=== PATIENT | female | born 1990 | race Two or more races ===

== ENCOUNTER → 2021-05-03 | Outpatient (CLI) | payer OTHER ==
[~2021-05-03] MED LIST: ISOVUE-370 76% 100ML VIAL As Ordered ONE
== END ==
LOC: M RADPRO 11:38
PROVIDERS: ATTEND Obstetrics & Gynecology
DX: N97.9 Female infertility, unspecified (principal)
CPT/HCPCS: 58340; 74740; Q9967

== ENCOUNTER 2022-03-08 07:28 | Inpatient (IN) | payer OTHER ==
[~2022-03-08] VITALS: Ht 162.6 cm; Wt 110.0 kg
[2022-03-08] VITALS (30 sets, daily range): BP systolic 95–140; BP diastolic 51–92
[2022-03-08] MEDS ORDERED: ZOLO25TA PO (07:53)
[2022-03-08] MEDS ORDERED: GNP28TAB2 PO (07:53)
[2022-03-08] MEDS ORDERED: LACTATED RINGER'S 1000 ML IV STA (08:44)
[2022-03-08] MEDS ORDERED: CARBOPROST TROMETHAMINE 250 MCG/ML AMP IM PRN (08:45)
[2022-03-08] MEDS ORDERED: TRANEXAMIC ACID INJection 1,000 MG in NS 100 ML IV PRN (08:45)
[2022-03-08] MEDS ORDERED: OXYTOCIN DRIP 30 UNITS in IV 1 EA IV PRN (08:45)
[2022-03-08] MEDS ORDERED: LR 1,000 ML IV SCH (08:45)
[2022-03-08] MEDS ORDERED: LIDOCAINE 1% MDV 20ML VIAL INFIL PRN (08:45)
[2022-03-08] MEDS ORDERED: METHYLERGONOVINE MALEATE 0.2 MG/ML VIAL (J2210) IM PRN (08:45)
[2022-03-08] MEDS ORDERED: HOME MED LIST COMPLETE! XX SCH (09:10)
[2022-03-08 09:30] LABS: HEMATOCRIT 41.5 % (36.0-47.0); HEMOGLOBIN 13.7 g/dl (12.0-15.5); MEAN CORPUSCULAR VOLUME 93.9 fl (80.0-96.0); PLATELET COUNT, AUTOMATED 289 10^3/uL (150-450); RED BLOOD COUNT 4.42 10^6/uL (4.00-5.40); WHITE BLOOD COUNT 14.7 10^3/uL (4.0-10.0)
[2022-03-08] MEDS ORDERED: ONDANSETRON 4MG 2ML VIAL IV PRN (09:50)
[2022-03-08] MEDS ORDERED: EPIDURAL/PCA KEYS XX PRN (09:50)
[2022-03-08] MEDS ORDERED: LR 500 ML IV PRN (09:50)
[2022-03-08] MEDS ORDERED: ePHEDrine SULFATE 25 MG/5 ML(5MG/ML) SYRINGE IVP PRN (09:50)
[2022-03-08] MEDS ORDERED: NALOXONE INJ 0.4MG/1ML VIAL IV PRN (09:50)
[2022-03-08] MEDS ORDERED: FENTANYL/ROPIVACAINE/NACL BAG 100 ML EPIDURAL SCH (09:50)
[2022-03-08] MEDS ORDERED: diphenhydrAMINE 50MG/ML VIAL IV PRN (09:50)
[2022-03-08] MEDS ORDERED: OXYTOCIN DRIP 30 UNITS in IV 1 EA IV SCH (13:35)
[2022-03-08] MEDS ORDERED: DOCUSATE SODIUM 100MG CAPSULE PO PRN (13:35)
[2022-03-08] MEDS ORDERED: METHYLERGONOVINE MALEATE 0.2 MG TAB PO PRN (13:35)
[2022-03-08] MEDS ORDERED: RHOGAM 300MCG (1500IU) INJ IM SCH (13:35)
[2022-03-08] MEDS ORDERED: DIBUCAINE 1% OINTMENT 30GM TOP PRN (13:35)
[2022-03-08] MEDS ORDERED: OXYTOCIN 30UNITS IN 0.9% NaCl 500ML IV BAG As Ordered ONE (13:43)
[2022-03-09 02:00] VITALS: BP 119/70
[2022-03-09] MEDS: IBUPROFEN 800 MG TAB PO PRN ×2 (02:22→22:16)
[2022-03-09 06:00] VITALS: BP 119/63
[2022-03-09] MEDS: PRENATAL VITAMINS CHEWABLE TABLET PO SCH (08:39)
[2022-03-09 10:00] VITALS: BP 120/79
[2022-03-09] MEDS: ACETAMINOPHEN TAB 650MG DOSE (2X325MG) PO PRN ×2 (10:54→20:38)
[2022-03-09 14:00] VITALS: BP 129/71
[2022-03-09 18:05] VITALS: BP 124/75
[2022-03-09 22:00] VITALS: BP 125/74
[2022-03-10 02:00] VITALS: BP 120/61
[2022-03-10] MEDS: IBUPROFEN 800 MG TAB PO PRN (05:21)
[2022-03-10 05:58] VITALS: BP 119/76
[2022-03-10] MEDS: PRENATAL VITAMINS CHEWABLE TABLET PO SCH (08:59)
[2022-03-10] MEDS ORDERED: MEASLES,MUMPS,RUBELLA VACCINE INJ (MMR-II) SC.IMMUN ONE (09:00)
[2022-03-10 10:00] VITALS: BP 127/74
[2022-03-10] MEDS ORDERED: IBUP80TA PO (11:34)
[2022-03-10] MEDS ORDERED: ACET1TAB55 PO (11:34)
[2022-03-10] MEDS: ACETAMINOPHEN TAB 650MG DOSE (2X325MG) PO PRN (12:43)
== END 2022-03-10 14:50 | disposition home or self-care (01) | DRG 807 ==
LOC: M LDO 07:28 → M LDI 08:40 → M OBS 17:00
PROVIDERS: ADMIT Registered Nurse; ATTEND Registered Nurse
PROC: 10E0XZZ Delivery of Products of Conception, External Approach (ICD-10-PCS; principal; 2022-03-08)
PROC: 0KQM0ZZ Repair Perineum Muscle, Open Approach (ICD-10-PCS; 2022-03-08)
PROC: 0HQ9XZZ Repair Perineum Skin, External Approach (ICD-10-PCS; 2022-03-08)
DX: O99.214 Obesity complicating childbirth (principal); Z37.0 Single live birth; E66.9 Obesity, unspecified; O99.344 Other mental disorders complicating childbirth; F32.A Depression, unspecified; Z86.16 Personal history of COVID-19; Z3A.38 38 weeks gestation of pregnancy; O77.0 Labor and delivery complicated by meconium in amniotic fluid; O73.0 Retained placenta without hemorrhage; O70.1 Second degree perineal laceration during delivery; O70.0 First degree perineal laceration during delivery